=== PATIENT | male | born 1940 | race Two or more races ===

== ENCOUNTER 2017-06-29 23:19 | Inpatient (IN) | payer OTHER ==
[~2017-06-29] VITALS: Ht 175.3 cm; Wt 107.5 kg
[2017-06-30] MEDS ORDERED: ACETAMINOPHEN 500 MG TAB PO ONE
[2017-06-30 00:02] LABS: Basophils # (auto) 0 uL; Basophils % (auto) 0.5 % (0.0-2.0); Eosinophils # (auto) 0 uL; Hematocrit 36.3 % (41.0-53.0); Hemoglobin 12.2 g/dL (13.5-17.5); Lymphocytes # (auto) 0.2 uL; Lymphocytes % (auto) 2.5 % (10.0-50.0); Mean Corpuscular Hemoglobin 31.4 pg (28.0-32.0); Mean Corpuscular Hgb Conc. 33.5 g/dL (32.0-36.0); Mean Corpuscular Volume 93.7 fL (80.0-100.0); Monocytes # (auto) 0.2 uL; Monocytes % (auto) 2.3 % (0.0-12.0); Neutrophils # (auto) 9.4 uL; Neutrophils % (auto) 94.7 % (37.0-80.0); Nucleated Red Blood Cells % 0.1 %; Platelet Count (auto) 147 10^3/uL (140-450); Red Blood Cells 3.88 10^6/uL (4.5-5.90); Red Cell Distribution Width 13.5 % (11.8-14.3)
[2017-06-30 00:06] LABS: Urine Bacteria FEW /hpf (None Seen); Urine Blood 1+ /uL (Negative); Urine Specific Gravity 1.014 (1.001-1.035); Urine WBC 27 /hpf (0 - 3); Urine WBC Clumps PRESENT /hpf (None Seen)
[2017-06-30] MEDS ORDERED: VANCOMYCIN 1GM/250ML 250 ML IV ONE (00:15)
[2017-06-30] MEDS ORDERED: SODIUM CHLORIDE 0.9% 1,000 ML IV ONE (00:15)
[2017-06-30] MEDS ORDERED: cefTRIAXone 1GM/10ml IVPUSH 10 ML IV ONE (00:15)
[2017-06-30 00:28] LABS: INR 1.13 (0.9-1.15); Partial Thromboplastin Time 37.6 sec (22.64-33.71); Prothrombin Time 12.3 sec (9.37-12.3)
[2017-06-30 00:35] LABS: Chloride 113 mmol/L (98-107); Sodium 142 mmol/L (136-145)
[2017-06-30 00:41] LABS: Alcohol, Urine < 3.0 mg/dL (0-5); Amphetamine Screen, Urine NEGATIVE (NEGATIVE); Barbiturate Scree,Urine NEGATIVE (NEGATIVE); Benzodiazephine Screen, Urine NEGATIVE (NEGATIVE); Cannabinoid Screen, Urine NEGATIVE (NEGATIVE); Cocaine Screen, Urine NEGATIVE (NEGATIVE); Opiate Scree,Urine NEGATIVE (NEGATIVE); Phencyclidine Screen, Urine NEGATIVE (NEGATIVE)
[2017-06-30 00:44] LABS: Alanine Aminotransferase 19 U/L (16-61); Alkaline Phosphatase 57 U/L (45-117); Anion Gap 10 (5-15); Aspartate Aminotransferase 24 U/L (15-37); BUN/Creatinine Ratio 13.2; Bilirubin, Total 0.8 mg/dL (0.2-1.0); Blood Urea Nitrogen 29 mg/dL (7-18); Calcium 8.2 mg/dL (8.5-10.1); Carbon Dioxide 19 mmol/L (21-32); GFR African American 37 mL/min; GFR Non-African American 31 mL/min; Glucose 114 mg/dL (74-106); Total Protein 6.7 g/dL (6.4-8.2)
[2017-06-30 00:45] LABS: Albumin 3.3 g/dL (3.4-5.0); Magnesium 1.5 mg/dL (1.6-2.6)
[2017-06-30 00:59] LABS: Blood Alcohol < 3.0 mg/dL (0-5)
[2017-06-30] MEDS ORDERED: ASPirin 81 mg TAB PO ONE (01:45)
[2017-06-30] MEDS ORDERED: NITROGLYCERIN 0.4 MG SL TAB SL PRN (05:00)
[2017-06-30] MEDS ORDERED: DEXTROSE (50%) 50ML SYRG IV PRN (05:00)
[2017-06-30] MEDS ORDERED: ONDANSETRON HCL 4 MG/2 ML VIAL IV PRN (05:00)
[2017-06-30] MEDS ORDERED: MORPHINE SULFATE 4 MG/ML SYR/VIAL IV PRN (05:00)
[2017-06-30] MEDS ORDERED: TEMAZEPAM 15 MG CAP PO PRN (05:00)
[2017-06-30] MEDS ORDERED: ACETAMINOPHEN 325 MG TAB PO PRN (05:00)
[2017-06-30] MEDS: InsuLIN REG 1unit/0.01ml Soln (100units/ml) SC SCH ×3 (06:00→19:00)
[2017-06-30] MEDS: ACCU-CHEK COMFORT CURVE STRIP VI SCH ×3 (06:22→19:00)
[2017-06-30] MEDS ORDERED: ENOXAPARIN SOD 100 MG/1 ML SYRINGE SC ONE (07:33)
[2017-06-30] MEDS: MAGNESIUM SULFATE 1GM/100ML 100 ML IV SCH ×2 (08:07→09:10)
[2017-06-30] MEDS ORDERED: ENOXAPARIN SOD 30 MG/0.3 ML SYRINGE SC SCH (10:00)
[2017-06-30] MEDS: LISINOPRIL 10 MG TAB PO SCH (10:00)
[2017-06-30] MEDS: PANTOPRAZOLE 40 MG TAB PO SCH (10:12)
[2017-06-30] MEDS: ASPirin 81 mg TAB PO SCH (10:12)
[2017-06-30] MEDS ORDERED: SOD CHL 0.45% 1,000 ML IV SCH (12:00)
[2017-06-30] MEDS: SODIUM CHLORIDE 0.9% 1,000 ML IV SCH (13:07)
[2017-06-30 15:00] VITALS: BP 112/66
[2017-06-30 16:56] VITALS: BP 102/56
[2017-06-30] MEDS: TAMSULOSIN HYDROCHLORIDE 0.4 MG CAP PO SCH (19:00)
[2017-06-30] MEDS: ATORVASTATIN 20 MG TAB PO SCH (21:41)
[2017-06-30] MEDS: cefTRIAXone 1GM/10ml IVPUSH 10 ML IV SCH (21:42)
[2017-06-30 22:00] VITALS: BP 111/65
[2017-06-30] MEDS ORDERED: PATIENTS OWN MEDICATION (simvastatin 20 MG) PO SCH (22:00)
[2017-07-01] MEDS: ACCU-CHEK COMFORT CURVE STRIP VI SCH ×5 (01:06→23:56)
[2017-07-01] MEDS: SODIUM CHLORIDE 0.9% 1,000 ML IV SCH ×2 (03:39→16:43)
[2017-07-01 05:00] VITALS: BP 121/64
[2017-07-01] MEDS: InsuLIN REG 1unit/0.01ml Soln (100units/ml) SC SCH ×5 (05:48→23:55)
[2017-07-01 07:00] LABS: Basophils # (auto) 0 uL; Basophils % (auto) 0.2 % (0.0-2.0); Eosinophils # (auto) 0.1 uL; Hematocrit 35.6 % (41.0-53.0); Hemoglobin 12.1 g/dL (13.5-17.5); Lymphocytes # (auto) 0.8 uL; Lymphocytes % (auto) 9.3 % (10.0-50.0); Mean Corpuscular Hemoglobin 31.8 pg (28.0-32.0); Mean Corpuscular Hgb Conc. 33.9 g/dL (32.0-36.0); Monocytes # (auto) 0.7 uL; Monocytes % (auto) 8.3 % (0.0-12.0); Neutrophils # (auto) 7.3 uL; Neutrophils % (auto) 81.2 % (37.0-80.0); Nucleated Red Blood Cells % 0.2 %; Platelet Count (auto) 140 10^3/uL (140-450); Red Blood Cells 3.79 10^6/uL (4.5-5.90); Red Cell Distribution Width 13.6 % (11.8-14.3)
[2017-07-01 09:00] VITALS: BP 133/70
[2017-07-01 09:17] LABS: Albumin 3.2 g/dL (3.4-5.0); BUN/Creatinine Ratio 20.6; Bilirubin, Total 0.3 mg/dL (0.2-1.0); Calcium 7.8 mg/dL (8.5-10.1); Magnesium 2.7 mg/dL (1.6-2.6); Potassium 4.1 mmol/L (3.5-5.1); Total Protein 6.5 g/dL (6.4-8.2)
[2017-07-01] MEDS: ENOXAPARIN SOD 100 MG/1 ML SYRINGE SC SCH (09:17)
[2017-07-01] MEDS: ASPirin 81 mg TAB PO SCH (09:18)
[2017-07-01] MEDS: PANTOPRAZOLE 40 MG TAB PO SCH (09:18)
[2017-07-01] MEDS: LISINOPRIL 10 MG TAB PO SCH (09:20)
[2017-07-01] MEDS ORDERED: MAGNESIUM SULFATE 1GM/100ML 100 ML IV SCH (11:00)
[2017-07-01 12:57] LABS: Protein, Urine 29.2 mg/dL (0.0-11.9)
[2017-07-01 13:00] VITALS: BP 139/83
[2017-07-01] MEDS: HYDROcodone-ACET 5/325MG TAB PO PRN (16:42)
[2017-07-01 17:00] VITALS: BP 147/90
[2017-07-01] MEDS: TAMSULOSIN HYDROCHLORIDE 0.4 MG CAP PO SCH (18:39)
[2017-07-01] MEDS: cefTRIAXone 1GM/10ml IVPUSH 10 ML IV SCH (21:28)
[2017-07-01] MEDS: ATORVASTATIN 20 MG TAB PO SCH (21:28)
[2017-07-01 22:00] VITALS: BP 155/88
[2017-07-01] MEDS ORDERED: DOCUSATE SOD 100 MG CAP PO PRN (22:15)
[2017-07-02] MEDS: SODIUM CHLORIDE 0.9% 1,000 ML IV SCH (04:55)
[2017-07-02 05:00] VITALS: BP 146/74
[2017-07-02] MEDS: InsuLIN REG 1unit/0.01ml Soln (100units/ml) SC SCH (05:25)
[2017-07-02] MEDS: ACCU-CHEK COMFORT CURVE STRIP VI SCH (05:26)
[2017-07-02 06:19] LABS: BUN/Creatinine Ratio 18.8; Bilirubin, Total 0.3 mg/dL (0.2-1.0); Calcium 7.5 mg/dL (8.5-10.1); Phosphorus 2.6 mg/dL (2.5-4.90); Potassium 3.8 mmol/L (3.5-5.1); Total Protein 6.1 g/dL (6.4-8.2)
[2017-07-02 09:00] VITALS: BP 151/78
[2017-07-02] MEDS: ENOXAPARIN SOD 100 MG/1 ML SYRINGE SC SCH (10:00)
[2017-07-02] MEDS: PANTOPRAZOLE 40 MG TAB PO SCH (10:03)
[2017-07-02] MEDS: ASPirin 81 mg TAB PO SCH (10:03)
[2017-07-02] MEDS: HYDROcodone-ACET 5/325MG TAB PO PRN (10:03)
[2017-07-02] MEDS: LISINOPRIL 10 MG TAB PO SCH (10:04)
[2017-07-02 10:45] VITALS: BP 151/78
== END 2017-07-02 12:00 | disposition home or self-care (01) | DRG 871 ==
LOC: ER 23:19 → TELE 23:20 → TELE-CENTR 06-30 15:09
PROVIDERS: ADMIT Nurse Practitioner; ATTEND Internal Medicine Geriatric Medicine
DX: A41.9 Sepsis, unspecified organism (principal); I21.4 Non-ST elevation (NSTEMI) myocardial infarction; N17.0 Acute kidney failure with tubular necrosis; G93.41 Metabolic encephalopathy; N39.0 Urinary tract infection, site not specified; N18.3 Chronic kidney disease, stage 3 (moderate); W18.39XA Other fall on same level, initial encounter; E11.22 Type 2 diabetes mellitus with diabetic chronic kidney disease; E11.51 Type 2 diabetes mellitus with diabetic peripheral angiopathy without gangrene; E78.5 Hyperlipidemia, unspecified; E83.42 Hypomagnesemia; H40.9 Unspecified glaucoma; I12.9 Hypertensive chronic kidney disease with stage 1 through stage 4 chronic kidney disease, or unspecified chronic kidney disease; J32.0 Chronic maxillary sinusitis; N40.0 Benign prostatic hyperplasia without lower urinary tract symptoms; S09.90XA Unspecified injury of head, initial encounter; Z79.82 Long term (current) use of aspirin; E66.9 Obesity, unspecified; Y93.89 Activity, other specified; Y92.89 Other specified places as the place of occurrence of the external cause
CPT/HCPCS: 36415; 70450; 70486; 71045; 76775; 78582; 80053; 80307; 80320; 81001; 82570; 82962; 83036; 83605; 83735; 84100; 84156; 84300; 84484; 84550; 85025; 85379; 85610; 85730; 87040; 87086; 87088; 87186; 93005; 93306; 96365; 96367